=== PATIENT | female | born 1965 | race Caucasian/White ===

== ENCOUNTER 2018-03-07 08:12 | Day surgery (SDC) | payer OTHER ==
[2018-02-27 14:02] VITALS: BMI 24.5
[2018-03-07] MEDS ORDERED: ONDANSETRON 4 MG/2 ML VIAL ONE ×2 (10:30→12:34)
[2018-03-07] MEDS ORDERED: PROPOFOL 20 ML ONE (10:30)
[2018-03-07] MEDS ORDERED: DEXAMETHASONE SOD PHOSPHATE 4 MG/1 ML VIAL ONE (10:30)
[2018-03-07] MEDS ORDERED: MIDAZOLAM HCL 2 MG/2 ML SINGLE DOSE VIAL ONE (10:30)
[2018-03-07] MEDS ORDERED: LIDOCAINE HCL/PF 2% SDV 5ML VIAL ONE (10:30)
[2018-03-07] MEDS ORDERED: BUPIVACAINE HCL/PF 2.5 MG/ML - 30 ML VIAL IJ ONE (11:27)
[2018-03-07] MEDS ORDERED: ceFAZolin SODIUM 1 GM VIAL ONE (11:30)
[2018-03-07] MEDS ORDERED: KETOROLAC TROMETHAMINE 30 MG/1 ML VIAL ONE (11:56)
--- NOTE | 2018-03-07 12:14 | OP ---
Operative Note - Note: Operative Date: 03/07/18 Pre-Operative Diagnosis: right knee lateral meniscal tear Operation: right knee arthroscopy. partial lateral meniscectomy Post-Operative Diagnosis: Same as Pre-op Surgeon: Anthony Machado Anesthesiologist/SENIOR BIOSTATISTICIAN/GROUP LEADER: Ruchi Hinojosa Anesthesia: General Operative Report Dictated: Yes
[2018-03-07] MEDS ORDERED: ONDANSETRON 4 MG/2 ML VIAL IVPUSH ONE (12:47)
--- NOTE | 2018-03-07 13:11 | OP ---
DATE OF OPERATION: 03/07/2018 PREOPERATIVE DIAGNOSIS: Right knee lateral meniscal tear. POSTOPERATIVE DIAGNOSIS: Right knee lateral meniscal tear. PROCEDURE: Right knee arthroscopy with partial lateral meniscectomy. SURGEON: Anthony Machado MD ANESTHESIA: General. POSTOPERATIVE CONDITION: Stable. COMPLICATIONS: None. INDICATIONS: This is a pleasant 52-year-old female suffering from lateral knee pain. Treatment options including nonoperative versus operative management were reviewed. Operative risks were reviewed in detail including bleeding, infection, neurovascular injury, need for further surgery, postoperative pain or stiffness, and progressive osteoarthritis. We discussed medical risks such as heart attack, stroke, DVT, PE, and . I addressed the patients questions and concerns. We reviewed the postoperative rehabilitation protocol. She elected to proceed. DESCRIPTION OF PROCEDURE: The patient was brought to the operating room where general anesthesia was administered. The right lower extremity was then prepped and draped in the usual sterile fashion. A preoperative dose of antibiotics was given, and the usual time-out procedure was performed. At this point, the portals were marked out and injected subcutaneously with 0.25% Marcaine. An 11 blade was used to establish a lateral portal. The arthroscope was passed through the knee. Examination of the patellofemoral joint demonstrated some mild articular changes. Passing the arthroscope into the notch demonstrated intact ACL. The medial portal was now established under spinal needle localization. Examination of the medial compartment demonstrated diffuse moderate grade partial thickness chondral loss throughout the femoral condyle and mild fraying on the tibial side. The meniscus was visualized, seen to be intact and probed and found to be stable. The arthroscope was passed into the lateral compartment. Here, a complex tear was noted, which started at the radial portion and body extending into the posterior horn. There was mild grade partial thickness chondral loss at the femur and fissuring. Utilizing a combination of meniscal biter and a shaver, the lateral meniscus was debrided down to a stable base. Excess fluid at this time was withdrawn from the knee. The portals were sutured using 3-0 nylon. Sterile dressings were placed. The patient was extubated and transferred to the recovery room in stable condition. Alireza [id number]/[id number]
[2018-03-07] MEDS ORDERED: oxyCODONE HCL 5 MG TABLET ONE (13:13)
[2018-03-07] MEDS ORDERED: oxyCODONE HCL 5 MG TABLET PO ONE (13:15)
[2018-03-07 14:14] VITALS: TEMP 98.4
[2018-03-07] MEDS ORDERED: ONDANSETRON 4 MG/2 ML VIAL IVPUSH PRN (14:33)
[2018-03-07] MEDS ORDERED: oxyCODONE HCL 5 MG TABLET PO PRN ×2 (14:33→16:11)
[2018-03-07] MEDS ORDERED: LACTATED RINGERS SOLUTION 1,000 ML IV SCH (14:45)
[2018-03-07 15:28] VITALS: BP 99/57; PULSE 83
== END 2018-03-07 15:05 | disposition home or self-care (01) ==
LOC: FASU 08:12
PROVIDERS: ATTEND Orthopaedic Surgery Sports Medicine
PROC: 0SBC4ZZ Excision of Right Knee Joint, Percutaneous Endoscopic Approach (ICD-10-PCS; principal; 2018-03-07 11:36)
DX: S83.281A Other tear of lateral meniscus, current injury, right knee, initial encounter (principal); X58.XXXA Exposure to other specified factors, initial encounter; Y93.9 Activity, unspecified; Y92.9 Unspecified place or not applicable
CPT/HCPCS: 84703